=== PATIENT | female | born 1950 | race Caucasian/White ===

== ENCOUNTER 2017-07-03 11:43 | Inpatient (IN) ==
[2017-07-03] MEDS ORDERED: ASPIRIN 325 MG TABLET PO STA (12:02)
[2017-07-03] MEDS ORDERED: KETOROLAC 30 MG/1 ML VIAL IV STA (12:02)
[2017-07-03 12:42] LABS: Basophils # 0.1 10*3/uL (0.0-0.2); Basophils % 0.5 % (0.0-0.8); Eosinophils # 0.2 10*3/uL (0.0-0.87); Eosinophils % 1.3 % (0.00-10.9); Hematocrit 40.8 VOL% (35.7-47.0); Hemoglobin 13.1 GM/DL (12.0-16.0); Immature Granulocytes Absolute 1.23 #; Lymphocytes # 0.9 10*3/uL (1.4-4.0); Lymphocytes % 5.1 % (21.3-54.2); Mean Corpuscular HGB Conc 32.1 GM/DL (32-36); Mean Corpuscular Hemoglobin 28 PG (27-34); Mean Corpuscular Volume 87.9 FL (87-102); Mean Platelet Volume 10.8 FL (9.6-12.0); Monocytes # 1.1 10*3/uL (0.11-0.8); Monocytes % 6.3 % (1.7-12.7); NRBC # 0.02 10*3/uL; Neutrophils # 14.1 10*3/uL (1.4-7.4); Neutrophils % 79.8 % (38.7-73.9); Platelet Count 229 T/CUMM (130-400); Red Blood Count 4.64 MC/CUMM (3.8-5.5); Red Cell Distribution Width 18.4 % (9.3-17.3); White Blood Count 17.7 T/CUMM (4-12)
[2017-07-03 12:55] LABS: INR 1.2; PT Patient Result 12.9 SECS
[2017-07-03 12:59] LABS: Band Neutrophils 4 % (0-10); Giant Platelets Few; Hypochromasia Slight; Lymphocytes 3 % (20-55); Platelet Estimate Adequate; Segmented Neutrophils 86 % (50-85); Total Cells Counted 100
[2017-07-03 13:04] LABS: Partial Thromboplastin Time 41.6 SECS (0-40)
[2017-07-03 13:17] LABS: Albumin 2.4 G/DL (3.4-5.0); Bilirubin,Total 0.8 MG/DL (0.2-1.0); Calcium 9.3 MG/DL (8.5-10.1); Potassium 4.5 MMOL/L (3.5-5.1); Total Protein 6.7 G/DL (6.4-8.3)
[2017-07-03] MEDS ORDERED: cefTRIAXone 1,000 MG in SODIUM CHLORIDE 0.9% 100 ML IV STA (13:37)
[2017-07-03] MEDS ORDERED: cefTRIAXone 1,000 MG VIAL ONE (14:30)
[2017-07-03] MEDS ORDERED: KETOROLAC 30 MG/1 ML VIAL ONE (14:31)
[2017-07-03] MEDS ORDERED: ASPIRIN 325 MG TABLET ONE (14:31)
[2017-07-03] MEDS ORDERED: FUROSEMIDE 40 MG/4 ML VIAL IV ONE (14:49)
[2017-07-03] MEDS ORDERED: GLUCAGON 1 MG VIAL IM PRN (17:17)
[2017-07-03] MEDS ORDERED: DEXTROSE 50% 25 GM/50 ML VIAL IV PRN (17:17)
[2017-07-03] MEDS ORDERED: ONDANSETRON 4 MG/2 ML VIAL IV PRN (17:17)
[2017-07-03] MEDS: INSULIN LISPRO 100 UNIT/ML SUBCUT SCH ×2 (19:36→22:41)
[2017-07-03 21:49] LABS: Troponin I Only 0.028 NG/ML (0.00-0.045)
[2017-07-03] MEDS: ACETAMINOPHEN 325 MG TABLET PO PRN (23:15)
[2017-07-04 00:34] LABS: Apearance,Urine CLOUDY (Clear); Bacteria,Urine Occasional /HPF (Few); Bilirubin,Urine Negative (Negative); Blood, Urine Large mg/dL (Negative); Glucose,Urine (UA) Negative (Negative); Hyaline Casts,Urine 30 /LPF (0-3); Ketones,Urine Negative (Negative); Mucus,Urine Occasional /LPF (Occasional); Nitrite,Urine Negative (Negative); Protein,Urine Negative; RBC,Urine 166 /HPF (0-4); Squamous Epithelial Cell,Urine Occasional /HPF (0-10); Urine Color Yellow (Yellow); Urine Specific Gravity 1.009 (1.001-1.035); Urine Urobilinogen < 2.0 EU/DL (0.2-1.0); WBC,Urine 20 /HPF (0-6)
[2017-07-04 02:25] LABS: Basophils # 0.1 10*3/uL (0.0-0.2); Basophils % 0.3 % (0.0-0.8); Eosinophils # 0.2 10*3/uL (0.0-0.87); Eosinophils % 1.3 % (0.00-10.9); Hematocrit 34.2 VOL% (35.7-47.0); Hemoglobin 10.9 GM/DL (12.0-16.0); Immature Granulocytes % 7.1 %; Immature Granulocytes Absolute 1.27 #; Lymphocytes % 5.6 % (21.3-54.2); Mean Corpuscular HGB Conc 31.9 GM/DL (32-36); Mean Corpuscular Hemoglobin 28 PG (27-34); Mean Corpuscular Volume 88.8 FL (87-102); Mean Platelet Volume 10.6 FL (9.6-12.0); Monocytes # 1.4 10*3/uL (0.11-0.8); Monocytes % 7.9 % (1.7-12.7); Neutrophils # 13.9 10*3/uL (1.4-7.4); Neutrophils % 77.8 % (38.7-73.9); Platelet Count 211 T/CUMM (130-400); Red Blood Count 3.85 MC/CUMM (3.8-5.5); Red Cell Distribution Width 18.4 % (9.3-17.3); White Blood Count 17.9 T/CUMM (4-12)
[2017-07-04 02:54] LABS: Band Neutrophils 1 % (0-10); Eosinophils 1 % (0-10); Lymphocytes 8 % (20-55); Myelocytes 1 %; Segmented Neutrophils 83 % (50-85)
[2017-07-04 02:55] LABS: Ovalocytes 1+; Platelet Estimate Normal
[2017-07-04 02:56] LABS: Hypochromasia 1+
[2017-07-04 02:57] LABS: Total Cells Counted 100
[2017-07-04 03:15] LABS: Troponin I Only 0.029 NG/ML (0.00-0.045)
[2017-07-04 03:22] LABS: Magnesium 1.3 MG/DL (1.8-2.4); Osmolality,Calculated 286.8 MOS/KG (273-304); Potassium 4.2 MMOL/L (3.5-5.1); Risk Ratio 4.91; Thyroid Stimulating Hormone 2.66 uIU/ml (0.358-3.74)
[2017-07-04] MEDS: ALBUTEROL 0.63 MG/3 ML NEB RESP TX SCH (08:11)
[2017-07-04] MEDS: INSULIN LISPRO 100 UNIT/ML SUBCUT SCH ×4 (08:47→21:51)
[2017-07-04] MEDS: METOPROLOL TARTRATE 100 MG TABLET PO SCH ×2 (08:48→21:51)
[2017-07-04] MEDS: OLMESARTAN 20 MG TABLET PO SCH (08:48)
[2017-07-04] MEDS: FENOFIBRATE 145 MG TABLET PO SCH (08:48)
[2017-07-04] MEDS: APIXABAN 5 MG TABLET PO SCH ×2 (08:48→21:51)
[2017-07-04] MEDS: CLOPIDOGREL 75 MG TABLET PO SCH (08:48)
[2017-07-04] MEDS: ALLOPURINOL 300 MG TABLET PO SCH (08:49)
[2017-07-04] MEDS: PANTOPRAZOLE 40 MG TABLET PO SCH (08:49)
[2017-07-04] MEDS: cefTRIAXone 1,000 MG in SYRINGE 1 EACH IV SCH (08:49)
[2017-07-04 09:32] LABS: Troponin I Only < 0.015 NG/ML (0.00-0.045)
[2017-07-04] MEDS: ACETAMINOPHEN 325 MG TABLET PO PRN ×2 (11:45→21:50)
[2017-07-04] MEDS ORDERED: FLUTICASONE 50 MCG NASAL SPRAY 16 GM BOTTLE BOTH NARES PRN (14:06)
[2017-07-04] MEDS ORDERED: NYSTATIN CREAM 15 GM TUBE TOP PRN (14:06)
[2017-07-04] MEDS ORDERED: DOCUSATE SODIUM 100 MG CAPSULE PO PRN (14:29)
[2017-07-04] MEDS: FUROSEMIDE 40 MG/4 ML VIAL IV SCH (16:18)
[2017-07-04] MEDS: ASPIRIN EC 81 MG TABLET PO SCH (21:51)
[2017-07-05] MEDS: ACETAMINOPHEN 325 MG TABLET PO PRN ×3 (04:49→22:05)
[2017-07-05 05:17] LABS: Basophils # 0.1 10*3/uL (0.0-0.2); Basophils % 0.5 % (0.0-0.8); Eosinophils # 0.3 10*3/uL (0.0-0.87); Eosinophils % 1.7 % (0.00-10.9); Hematocrit 34.5 VOL% (35.7-47.0); Immature Granulocytes % 8.4 %; Immature Granulocytes Absolute 1.38 #; Lymphocytes # 0.9 10*3/uL (1.4-4.0); Lymphocytes % 5.7 % (21.3-54.2); Mean Corpuscular HGB Conc 31.9 GM/DL (32-36); Mean Corpuscular Hemoglobin 29 PG (27-34); Mean Corpuscular Volume 89.6 FL (87-102); Mean Platelet Volume 10.8 FL (9.6-12.0); Monocytes # 1.4 10*3/uL (0.11-0.8); Monocytes % 8.5 % (1.7-12.7); NRBC # 0.03 10*3/uL; Neutrophils # 12.3 10*3/uL (1.4-7.4); Neutrophils % 75.2 % (38.7-73.9); Platelet Count 221 T/CUMM (130-400); Red Blood Count 3.85 MC/CUMM (3.8-5.5); Red Cell Distribution Width 18.6 % (9.3-17.3); White Blood Count 16.4 T/CUMM (4-12)
[2017-07-05 05:37] LABS: Calcium 8.7 MG/DL (8.5-10.1); Magnesium 1.6 MG/DL (1.8-2.4); Potassium 4.2 MMOL/L (3.5-5.1)
[2017-07-05 05:41] LABS: Band Neutrophils 2 % (0-10); Eosinophils 3 % (0-10); Lymphocytes 4 % (20-55); Nucleated Red Blood Cells 1 (0-5); Segmented Neutrophils 88 % (50-85); Total Cells Counted 100
[2017-07-05 05:42] LABS: Giant Platelets Few; Hypochromasia 1+; Platelet Estimate Adequate
[2017-07-05] MEDS: ALBUTEROL 0.63 MG/3 ML NEB RESP TX SCH (08:20)
[2017-07-05] MEDS: INSULIN LISPRO 100 UNIT/ML SUBCUT SCH ×2 (08:35→11:38)
[2017-07-05] MEDS: PANTOPRAZOLE 40 MG TABLET PO SCH (08:36)
[2017-07-05] MEDS ORDERED: NON-FORMULARY MEDICATION (Magnesium [Magnesium] 250 MG) PO SCH (09:00)
[2017-07-05] MEDS: FUROSEMIDE 40 MG/4 ML VIAL IV SCH ×2 (09:12→17:02)
[2017-07-05] MEDS: MAGNESIUM GLUCONATE 500 MG TABLET PO SCH (09:13)
[2017-07-05] MEDS: METOPROLOL TARTRATE 100 MG TABLET PO SCH ×2 (09:14→21:40)
[2017-07-05] MEDS: CLOPIDOGREL 75 MG TABLET PO SCH (09:14)
[2017-07-05] MEDS: APIXABAN 5 MG TABLET PO SCH ×2 (09:14→21:40)
[2017-07-05] MEDS: ALLOPURINOL 300 MG TABLET PO SCH (09:14)
[2017-07-05] MEDS: OLMESARTAN 20 MG TABLET PO SCH (09:14)
[2017-07-05] MEDS: FENOFIBRATE 145 MG TABLET PO SCH (09:14)
[2017-07-05] MEDS: cefTRIAXone 1,000 MG in SYRINGE 1 EACH IV SCH (09:15)
[2017-07-05] MEDS ORDERED: SKIN HEALING OINT (AQUAPHOR) 50 GM TUBE TOP PRN (14:46)
[2017-07-05] MEDS ORDERED: CHLORHEXIDINE 4% SOLN 118 ML BOTTLE TOP ONE (14:46)
[2017-07-05] MEDS: INSULIN REGULAR ** CONC 500 UNIT/ML ** 20 ML VIAL SUBCUT SCH ×2 (17:38→21:40)
[2017-07-05] MEDS: DESITIN 4OZ/NYSTATIN 15 GRAM MIXTURE PASTE TOP SCH (21:40)
[2017-07-05] MEDS: ASPIRIN EC 81 MG TABLET PO SCH (21:40)
[2017-07-06] MEDS: ACETAMINOPHEN 325 MG TABLET PO PRN ×4 (06:09→21:55)
[2017-07-06] MEDS: ALBUTEROL 0.63 MG/3 ML NEB RESP TX SCH (07:28)
[2017-07-06] MEDS ORDERED: BACITRACIN OINT 0.9 GM PACK TOP SCH (09:00)
[2017-07-06] MEDS: INSULIN REGULAR ** CONC 500 UNIT/ML ** 20 ML VIAL SUBCUT SCH ×4 (09:02→21:54)
[2017-07-06] MEDS: DESITIN 4OZ/NYSTATIN 15 GRAM MIXTURE PASTE TOP SCH ×2 (09:40→21:55)
[2017-07-06] MEDS: ALLOPURINOL 300 MG TABLET PO SCH (09:46)
[2017-07-06] MEDS: CLOPIDOGREL 75 MG TABLET PO SCH (09:46)
[2017-07-06] MEDS: OLMESARTAN 20 MG TABLET PO SCH ×2 (09:46→10:01)
[2017-07-06] MEDS: MAGNESIUM GLUCONATE 500 MG TABLET PO SCH (09:46)
[2017-07-06] MEDS: APIXABAN 5 MG TABLET PO SCH ×2 (09:46→21:54)
[2017-07-06] MEDS: FUROSEMIDE 40 MG/4 ML VIAL IV SCH ×2 (09:47→17:34)
[2017-07-06] MEDS: FENOFIBRATE 145 MG TABLET PO SCH (09:47)
[2017-07-06] MEDS: cefTRIAXone 1,000 MG in SYRINGE 1 EACH IV SCH (09:47)
[2017-07-06] MEDS: METOPROLOL TARTRATE 100 MG TABLET PO SCH ×2 (09:47→21:54)
[2017-07-06] MEDS ORDERED: POLYETHYLENE GLYCOL POWDER 17 GM PACK PO PRN (11:24)
[2017-07-06] MEDS: BACLOFEN 10 MG TABLET PO PRN ×3 (13:07→22:02)
[2017-07-06] MEDS: CIPROFLOXACIN 500 MG TABLET PO SCH ×2 (13:07→21:54)
[2017-07-06] MEDS: BACITRACIN OINT 0.9 GM PACK TOP SCH (16:38)
[2017-07-06] MEDS: ASPIRIN EC 81 MG TABLET PO SCH (21:53)
[2017-07-07] MEDS: ALBUTEROL 0.63 MG/3 ML NEB RESP TX SCH (07:39)
[2017-07-07] MEDS: BACITRACIN OINT 0.9 GM PACK TOP SCH (08:33)
[2017-07-07] MEDS: APIXABAN 5 MG TABLET PO SCH ×2 (08:33→20:21)
[2017-07-07] MEDS: CIPROFLOXACIN 500 MG TABLET PO SCH ×2 (08:33→20:21)
[2017-07-07] MEDS: INSULIN REGULAR ** CONC 500 UNIT/ML ** 20 ML VIAL SUBCUT SCH ×5 (08:33→20:22)
[2017-07-07] MEDS: OLMESARTAN 20 MG TABLET PO SCH (08:33)
[2017-07-07] MEDS: FENOFIBRATE 145 MG TABLET PO SCH (08:34)
[2017-07-07] MEDS: FUROSEMIDE 40 MG TABLET PO SCH (08:34)
[2017-07-07] MEDS: CLOPIDOGREL 75 MG TABLET PO SCH (08:34)
[2017-07-07] MEDS: METOPROLOL TARTRATE 100 MG TABLET PO SCH ×2 (08:34→20:21)
[2017-07-07] MEDS: MAGNESIUM GLUCONATE 500 MG TABLET PO SCH (08:34)
[2017-07-07] MEDS: ALLOPURINOL 300 MG TABLET PO SCH (08:34)
[2017-07-07] MEDS: DESITIN 4OZ/NYSTATIN 15 GRAM MIXTURE PASTE TOP SCH ×2 (08:34→20:22)
[2017-07-07] MEDS: ASPIRIN EC 81 MG TABLET PO SCH (20:21)
[2017-07-07] MEDS: BACLOFEN 10 MG TABLET PO PRN (20:35)
[2017-07-07] MEDS: ACETAMINOPHEN 325 MG TABLET PO PRN (20:35)
[2017-07-08 06:31] LABS: Basophils # 0.1 10*3/uL (0.0-0.2); Basophils % 0.6 % (0.0-0.8); Eosinophils # 0.1 10*3/uL (0.0-0.87); Eosinophils % 0.8 % (0.00-10.9); Hematocrit 39.2 VOL% (35.7-47.0); Immature Granulocytes % 7.2 %; Immature Granulocytes Absolute 1.03 #; Lymphocytes # 1.1 10*3/uL (1.4-4.0); Lymphocytes % 7.5 % (21.3-54.2); Mean Corpuscular HGB Conc 30.6 GM/DL (32-36); Mean Corpuscular Hemoglobin 28 PG (27-34); Mean Platelet Volume 9.8 FL (9.6-12.0); Monocytes # 1.4 10*3/uL (0.11-0.8); Monocytes % 9.9 % (1.7-12.7); Neutrophils # 10.5 10*3/uL (1.4-7.4); Platelet Count 292 T/CUMM (130-400); Red Blood Count 4.31 MC/CUMM (3.8-5.5); Red Cell Distribution Width 18.5 % (9.3-17.3); White Blood Count 14.2 T/CUMM (4-12)
[2017-07-08 06:57] LABS: Band Neutrophils 4 % (0-10); Giant Platelets Few; Hypochromasia 1+; Lymphocytes 6 % (20-55); Platelet Estimate Adequate; Segmented Neutrophils 84 % (50-85); Total Cells Counted 100
[2017-07-08 07:01] LABS: Calcium 9.3 MG/DL (8.5-10.1); Osmolality,Calculated 282.5 MOS/KG (273-304); Potassium 4.3 MMOL/L (3.5-5.1)
[2017-07-08] MEDS: INSULIN REGULAR ** CONC 500 UNIT/ML ** 20 ML VIAL SUBCUT SCH ×4 (07:30→22:01)
[2017-07-08] MEDS: ACETAMINOPHEN 325 MG TABLET PO PRN (07:43)
[2017-07-08] MEDS: ALBUTEROL 0.63 MG/3 ML NEB RESP TX SCH (07:56)
[2017-07-08] MEDS: OLMESARTAN 20 MG TABLET PO SCH (08:47)
[2017-07-08] MEDS: CIPROFLOXACIN 500 MG TABLET PO SCH ×2 (08:50→21:19)
[2017-07-08] MEDS: APIXABAN 5 MG TABLET PO SCH ×2 (08:52→21:20)
[2017-07-08] MEDS: FUROSEMIDE 40 MG TABLET PO SCH (08:53)
[2017-07-08] MEDS: METOPROLOL TARTRATE 100 MG TABLET PO SCH ×2 (08:53→21:20)
[2017-07-08] MEDS: CLOPIDOGREL 75 MG TABLET PO SCH (08:54)
[2017-07-08] MEDS: MAGNESIUM GLUCONATE 500 MG TABLET PO SCH (08:54)
[2017-07-08] MEDS: FENOFIBRATE 145 MG TABLET PO SCH (08:55)
[2017-07-08] MEDS: ALLOPURINOL 300 MG TABLET PO SCH (08:55)
[2017-07-08] MEDS: OLMESARTAN 5 MG TABLET PO SCH (12:31)
[2017-07-08] MEDS: DESITIN 4OZ/NYSTATIN 15 GRAM MIXTURE PASTE TOP SCH ×2 (17:06→22:03)
[2017-07-08] MEDS: BACITRACIN OINT 0.9 GM PACK TOP SCH (17:06)
[2017-07-08] MEDS: ASPIRIN EC 81 MG TABLET PO SCH (21:17)
[2017-07-09] MEDS: ACETAMINOPHEN 325 MG TABLET PO PRN (01:13)
[2017-07-09] MEDS ORDERED: oxyCODONE/ACETAMINOPHEN 5-325 MG TABLET PO ONE (07:46)
[2017-07-09] MEDS: ALBUTEROL 0.63 MG/3 ML NEB RESP TX SCH (08:20)
[2017-07-09] MEDS: DESITIN 4OZ/NYSTATIN 15 GRAM MIXTURE PASTE TOP SCH (09:00)
[2017-07-09] MEDS: BACITRACIN OINT 0.9 GM PACK TOP SCH (09:00)
[2017-07-09] MEDS: APIXABAN 5 MG TABLET PO SCH (09:37)
[2017-07-09] MEDS: INSULIN REGULAR ** CONC 500 UNIT/ML ** 20 ML VIAL SUBCUT SCH ×2 (09:37→12:36)
[2017-07-09] MEDS: CIPROFLOXACIN 500 MG TABLET PO SCH (09:38)
[2017-07-09] MEDS: FUROSEMIDE 40 MG TABLET PO SCH (09:38)
[2017-07-09] MEDS: MAGNESIUM GLUCONATE 500 MG TABLET PO SCH (09:38)
[2017-07-09] MEDS: CLOPIDOGREL 75 MG TABLET PO SCH (09:40)
[2017-07-09] MEDS: METOPROLOL TARTRATE 100 MG TABLET PO SCH (09:41)
[2017-07-09] MEDS: FENOFIBRATE 145 MG TABLET PO SCH (09:41)
[2017-07-09] MEDS: ALLOPURINOL 300 MG TABLET PO SCH (09:41)
[2017-07-09] MEDS: OLMESARTAN 5 MG TABLET PO SCH (10:22)
[2017-07-09 12:10] VITALS: BP 134/77
== END 2017-07-09 15:32 | disposition swing bed (61) | DRG 291 ==
LOC: N.EDINP 11:43 → N.ED 11:43 → N.EDINP 16:12 → N.3E 16:31 → SUATTDRO 07-06 10:34
PROVIDERS: ADMIT Internal Medicine; ATTEND Hospitalist